=== PATIENT | male | born 1950 | race Caucasian/White ===

== ENCOUNTER 2021-07-06 07:08 | Day surgery (SDC) | payer MEDICARE, BC ==
[~2021-07-06 07:08] MED LIST: Acetaminophen 325 MG Tab PO SCH; Lidocaine 1%/Sod Bicarbonate in NS 8.4% 1 ML Syringe IDERM PRN; Pregabalin 25 MG Cap PO SCH; Sodium Chloride 0.9% 10 ML Syringe FLUSH PRN; Vancomycin 1 GM SDV ONE; oxyCODONE ER 10 MG TAB.ER PO SCH
[2021-07-06] MEDS: Lactated Ringers 1,000 ML IV SCH ×2 (07:15→17:17)
[2021-07-06] MEDS ORDERED: Propofol 200 MG/20 ML SDV ONE ×2 (07:30→07:31)
[2021-07-06] MEDS ORDERED: Lidocaine 1% 4 ML ONE (07:31)
[2021-07-06] MEDS ORDERED: Midazolam 1 MG/ML 2 ML SDV ONE (07:33)
[2021-07-06] MEDS ORDERED: fentaNYL 100 MCG/2 ML SDV ONE ×2 (07:33→10:07)
[2021-07-06] MEDS ORDERED: ceFAZolin 1 GM Vial ONE (07:35)
[2021-07-06] MEDS ORDERED: Lidocaine 1% 5 ML VIAL ONE (08:44)
[2021-07-06] MEDS ORDERED: Succinylcholine/Sod PF 100 MG/5 ML SYRINGE IV ONE (09:06)
[2021-07-06] MEDS ORDERED: ePHEDrine 50 MG/ML SDV ONE (09:16)
[2021-07-06] MEDS ORDERED: Dexamethasone 4 MG/ML 5 ML MDV ONE (10:00)
[2021-07-06] MEDS ORDERED: Ondansetron 4 MG/2 ML SDV ONE (10:00)
[2021-07-06] MEDS: Vancomycin 1 GM SDV ONE ×2 (10:04→10:34)
[2021-07-06] MEDS: Morphine 8 MG, EPINEPHrine 0.3 MG, Cefuroxime 750 MG, Ketorolac 30 MG, Sodium Chloride ... PRN ×10 (10:05→10:33)
[2021-07-06] MEDS ORDERED: HYDROmorphone 0.5 MG/0.5 ML Syringe IVPUSH PRN (10:09)
[2021-07-06] MEDS ORDERED: Ondansetron 4 MG/2 ML SDV IVPUSH PRN (10:09)
[2021-07-06] MEDS ORDERED: Lactated Ringers 1,000 ML ONE (10:31)
[2021-07-06] MEDS: fentaNYL 100 MCG/2 ML SDV IVPUSH PRN ×2 (11:16→11:39)
[2021-07-06] MEDS: oxyCODONE 5 MG Tab PO PRN ×2 (12:31→18:42)
[2021-07-06] MEDS: Sodium Chloride 0.9% 10 ML Syringe FLUSH SCH (16:03)
[2021-07-07 09:04] VITALS: BP 121/55; PULSE 70
== END 2021-07-07 12:05 | disposition home or self-care (01) ==
LOC: JD.SDS 07:08 → JD.MS 15:16 → JD.SDS 07-07 12:05
PROVIDERS: ATTEND Orthopaedic Surgery
DX: M16.11 Unilateral primary osteoarthritis, right hip (principal); I10 Essential (primary) hypertension; E11.9 Type 2 diabetes mellitus without complications; M10.9 Gout, unspecified; E66.9 Obesity, unspecified; G47.30 Sleep apnea, unspecified; E78.00 Pure hypercholesterolemia, unspecified; Z79.899 Other long term (current) drug therapy; Z98.890 Other specified postprocedural states; Z68.41 Body mass index [BMI] 40.0-44.9, adult
CPT/HCPCS: 27130; 36415; 73501; 85610; 85730; 86850; 86900; 86901; 97110; 97116; 97161; 97530; A9270; C1713; C1776; J0171; J0330; J0690; J0697; J1100; J1170; J1885; J2250; J2270; J2405; J2704; J3010; J3370; J7120; 01214; 99100

== ENCOUNTER 2022-09-13 08:40 | Day surgery (SDC) | payer MEDICARE, BC ==
[~2022-09-13 08:40] MED LIST changes: +Sodium Chloride 0.9% 10 ML Syringe FLUSH SCH; -Vancomycin 1 GM SDV ONE
[2022-09-13] MEDS: Lactated Ringers 1,000 ML IV SCH ×2 (08:50→12:40)
[2022-09-13] MEDS ORDERED: Midazolam 1 MG/ML 2 ML SDV ONE (08:58)
[2022-09-13] MEDS ORDERED: Propofol 200 MG/20 ML SDV ONE ×2 (08:58→09:00)
[2022-09-13] MEDS ORDERED: fentaNYL 100 MCG/2 ML SDV ONE (08:58)
[2022-09-13] MEDS ORDERED: Lidocaine 1% 2 ML ONE (08:59)
[2022-09-13] MEDS ORDERED: ceFAZolin 2 GM Vial ONE (08:59)
[2022-09-13] MEDS ORDERED: Ropivacaine 0.5% 5 MG/ML 30 ML SDV ONE (09:36)
[2022-09-13] MEDS ORDERED: HYDROmorphone 0.5 MG/0.5 ML Syringe IVPUSH PRN (09:46)
[2022-09-13] MEDS ORDERED: fentaNYL 100 MCG/2 ML SDV IVPUSH PRN (09:46)
[2022-09-13] MEDS ORDERED: Ondansetron 4 MG/2 ML SDV IVPUSH PRN (09:46)
[2022-09-13] MEDS ORDERED: ePHEDrine 50 MG/ML SDV ONE (10:24)
[2022-09-13] MEDS ORDERED: Phenylephrine 1% 10 MG/ML SDV ONE (10:24)
[2022-09-13] MEDS: Morphine 8 MG, EPINEPHrine 0.3 MG, Cefuroxime 750 MG, Ketorolac 30 MG, Sodium Chloride ... PRN ×10 (11:07→11:15)
[2022-09-13] MEDS: Tranexamic Acid 1,000 MG/10 ML Vial ONE ×2 (11:07→11:22)
[2022-09-13] MEDS: Vancomycin 1 GM SDV ONE ×2 (11:08→11:22)
[2022-09-13] MEDS ORDERED: EPINEPHrine 1 MG/ML SDV ONE (11:31)
[2022-09-13] MEDS ORDERED: oxyCODONE 5 MG Tab PO ONE (14:19)
[2022-09-13 15:57] VITALS: BP 114/76; PULSE 78
== END 2022-09-13 15:52 | disposition home or self-care (01) ==
LOC: JD.SDS 08:40
PROVIDERS: ATTEND Orthopaedic Surgery
DX: M17.12 Unilateral primary osteoarthritis, left knee (principal); G89.29 Other chronic pain; I10 Essential (primary) hypertension; G47.33 Obstructive sleep apnea (adult) (pediatric); N40.1 Benign prostatic hyperplasia with lower urinary tract symptoms; R39.14 Feeling of incomplete bladder emptying; M79.81 Nontraumatic hematoma of soft tissue; R41.3 Other amnesia; E11.9 Type 2 diabetes mellitus without complications; M10.9 Gout, unspecified; E66.9 Obesity, unspecified; Z79.82 Long term (current) use of aspirin; Z79.899 Other long term (current) drug therapy; Z68.41 Body mass index [BMI] 40.0-44.9, adult
CPT/HCPCS: 0055T; 27447; 64447; 73560; 97110; 97116; 97161; A9270; C1713; C1776; J0171; J0690; J0697; J1885; J2250; J2270; J2370; J2704; J2795; J3010; J3370; J7120; 01402; 99100; J3490